=== PATIENT | female | born 1960 | race American Indian/Alaskan Native ===

== ENCOUNTER 2017-10-18 06:15 | Emergency (ER) | payer MEDICARE ==
[2017-10-18 06:36] VITALS: BMI 37.2
[2017-10-18 07:26] LABS: PH,URINE 6.5 (4.7-8.0); URINE BILIRUBIN LARGE (NEGATIVE); URINE BLOOD LARGE (NEGATIVE); URINE GLUCOSE (UA) NEGATIVE (NEGATIVE); URINE LEUKOCYTE ESTERASE LARGE Leu/uL (NEGATIVE); URINE NITRATE POSITIVE (NEGATIVE); URINE PROTEIN >=300 mg/dL (<30 mg/dL)
--- NOTE | 2017-10-18 07:51 | ED PDOC ---
Arrival/HPI - General Chief Complaint: Female Genitourinary Time Seen by Provider: 10/18/17 07:28 Historian: Patient, Family - History of Present Illness Narrative History of Present Illness (Text): 10/18/17 07:29 A 57 year old female, whose past medical history includes hypertension and hyperlipidemia, presents to the emergency department for UTI. The patient states 6 days ago she called her PMD who diagnosed her with a UTI and put her on a antibiotic 2 times a day for 5 days. The patient admits to having relief of her symptoms, but then yesterday her symptoms came back and now she has gross hematuria. The patient is complaining of hematuria, burning sensation while urinating, urgency, and no new lower back pain. She denies any fever, back pain, or any other complaints at this time. Time/Duration: 1 week Symptom Onset: Gradual Symptom Course: Unchanged Quality: Burning Severity Level: Mild Activities at Onset: Light Context: Home Past Medical History - Provider Review Nursing Documentation Reviewed: Yes - Cardiac Hx Pacemaker: No - Neurological Hx Paralysis: No - Hematological/Oncological Hx Blood Transfusions: Yes Hx Blood Transfusion Reaction: No Hx Cancer: Yes (skin) - Musculoskeletal/Rheumatological Hx Musculoskeletal Disorders: Yes - Psychiatric Hx Emotional Abuse: No Hx Physical Abuse: No Hx Substance Use: No - Surgical History Hx Orthopedic Surgery: Yes - Anesthesia Hx Anesthesia Reactions: No Hx Malignant Hyperthermia: No - Suicidal Assessment Feels Threatened In Home Enviroment: No Family/Social History - Physician Review Nursing Documentation Reviewed: Yes Family/Social History: No Known Family HX Smoking Status: Never Smoked Hx Alcohol Use: No Hx Substance Use: No Hx Substance Use Treatment: No Allergies/Home Meds Allergies/Adverse Reactions: Allergies No Known Allergies Allergy (Verified 10/18/17 06:36) Home Medications: Home Meds Medication Instructions Recorded Confirmed Rosuvastatin Calcium [Crestor] 20 mg PO DAILY 10/15/13 10/18/17 Valsartan [Diovan] 160 mg PO DAILY 10/15/13 10/18/17 Ibuprofen [Motrin] 600 mg PO PRN PRN 06/08/14 10/18/17 Review of Systems - Physician Review All systems were reviewed & negative as marked: Yes - Review of Systems Constitutional: absent: Fevers Gastrointestinal: Abdominal Pain (lower) Genitourinary Female: Dysuria (burning ), Frequency, Hematuria (gross) Musculoskeletal: absent: Back Pain Physical Exam - Physical Exam Narrative Physical Exam (Text): Constitutional: No acute distress. Head: Normocephalic. Atraumatic. Eyes: PERRL. ENT: Moist mucous membranes. Neck: Supple. Cardiovascular: Regular rate. Chest: No tenderness. Respiratory: Clear to auscultation bilaterally. GI: Soft. Nontender. Nondistended. Back: No CVA tenderness. Musculoskeletal: No tenderness or swelling of extremities. Skin: No rash. Neurologic: Alert, no focal deficit. Vital Signs Reviewed: Yes Vital Signs Temp Pulse Resp BP Pulse Ox 10/18/17 07:04 98.1 F 86 19 160/98 H 97 Temperature: Afebrile Blood Pressure: Hypertensive Pulse: Regular Respiratory Rate: Normal Appearance: Positive for: Well-Appearing, Non-Toxic, Comfortable Pain Distress: None Mental Status: Positive for: Alert and Oriented X 3 Medical Decision Making ED Course and Treatment: 10/18/17 07:53 Impression: A 57 year old female with gross blood in urine. Differential Diagnosis included but are not limited to: UTI Plan: -- Urinalysis -- Reassess and disposition Progress Notes: UA shows UTI. Will discharge on different antibiotic and send culture. No signs or symptoms of pyelonephritis or systemic infection. Patient states can follow up with PMD immediately. - Lab Interpretations Lab Results: Lab Results 10/18/17 07:00: Urine Color Dark red, Urine Appearance Bloody, Urine pH 6.5, Ur Specific [place] 1.020, Urine Protein >=300 H, Urine Glucose (UA) Negative, Urine Ketones 15 H, Urine Blood Large H, Urine Nitrate Positive H, Urine Bilirubin Large H, Urine Urobilinogen 2.0 H, Ur Leukocyte Esterase Large H, Urine RBC Pending, Urine WBC Pending - Medication Orders Current Medication Orders: Levofloxacin (Levaquin) 750 mg PO STAT STA Stop: 10/18/17 08:09 - Scribe Statement The provider has reviewed the documentation as recorded by the Faustina Hoyos Provider Scribe Attestation: All medical record entries made by the Scribe were at my direction and personally dictated by me. I have reviewed the chart and agree that the record accurately reflects my personal performance of the history, physical exam, medical decision making, and the department course for this patient. I have also personally directed, reviewed, and agree with the discharge instructions and disposition. Disposition/Present on Arrival - Present on Arrival Any Indicators Present on Arrival: No History of DVT/PE: No History of Uncontrolled Diabetes: No Urinary Catheter: No History of Decub. Ulcer: No History Surgical Site Infection Following: None - Disposition Have Diagnosis and Disposition been Completed?: Yes Diagnosis: UTI (urinary tract infection) Disposition: HOME/ ROUTINE Disposition Time: 08:13 Patient Plan: Discharge Condition: STABLE Discharge Instructions (ExitCare): Urinary Tract Infection in Women (ED) Prescriptions: levoFLOXacin [Levaquin] 1 tab PO DAILY #6 tab Referrals: Wili Kilpatrick MD [Staff Provider] - Follow up with primary Forms: [employer] (Nepali)
[2017-10-18 07:56] LABS: URINE APPEARANCE BLOODY (CLEAR); URINE COLOR DARK RED (YELLOW)
[2017-10-18] MEDS ORDERED: levoFLOXacin 750 MG TAB PO STA (08:08)
[2017-10-18 08:18] LABS: URINE BACTERIA MANY (NEG); URINE EPITHELIAL CELLS 0 - 2 /hpf (0-5); URINE RBC TNTC /hpf (0-2); URINE WBC TNTC /hpf (0-6)
[2017-10-18 08:31] VITALS: BP 128/79; PULSE 72; RESP 18; TEMP 98.9; O2SAT 98
== END 2017-10-18 08:31 | disposition home or self-care (01) ==
LOC: ED 06:15
DX: N39.0 Urinary tract infection, site not specified (principal); I10 Essential (primary) hypertension; E78.5 Hyperlipidemia, unspecified